=== PATIENT | female | born 1995 | race Hispanic/Latino ===

== ENCOUNTER 2017-01-18 17:30 | Inpatient (IN) | payer MEDICAID, OTHER, SELFPAY ==
[~2017-01-18 17:30] MED LIST: Bupivacaine 0.25% HCL 30 ML VIAL ONE; Lidocaine 2% MPF 10 ML AMP (For Epidural Use) ONE
[2017-01-18 18:01] VITALS: BMI 36.9
[2017-01-18] MEDS: Lactated Ringer's 1,000 ML IV SCH (18:10)
[2017-01-18] MEDS ORDERED: Ondansetron HCl/PF 4 MG/2 ML Vial IVP PRN ×2 (18:31→19:31)
[2017-01-18] MEDS ORDERED: Promethazine HCl 25 MG/ML VIAL IM PRN ×2 (18:31→19:31)
[2017-01-18] MEDS ORDERED: Meperidine HCl/PF 25 MG/ML VIAL IM/IV PRN (18:31)
[2017-01-18] MEDS ORDERED: Acetaminophen 500 MG TAB PO PRN (18:31)
[2017-01-18] MEDS ORDERED: Fentanyl 4 mcg/Marc 0.1% Cadd 100 ML ONE (18:38)
[2017-01-18 18:40] LABS: Hematocrit 35.6 % (36.0-47.0); Mean Platelet Volume 8.8 fL (7.4-10.4); Red Blood Cell (RBC) Count 4.39 mill/uL (4.00-5.20); White Blood Cell (WBC) Count 15.9 thou/uL (4.8-10.8)
[2017-01-18] MEDS ORDERED: Lactated Ringer's 500 ML IV PRN (19:31)
[2017-01-18] MEDS ORDERED: Naloxone HCl 0.4 mg/ml Vial IVP PRN ×2 (19:31)
[2017-01-18] MEDS ORDERED: ePHEDrine/0.9% NaCl/PF SYRINGE 50 mg/10 ml SLOW IVP PRN (19:31)
[2017-01-18] MEDS ORDERED: diphenhydrAMINE 50 MG/ML VIAL IVP PRN (19:31)
[2017-01-18] MEDS ORDERED: Acetaminophen 325 MG TAB PO PRN (19:31)
[2017-01-18] MEDS ORDERED: Eucerin (Mineral Oil/Petrolatum,White) 30 gm Jar TOP PRN (19:31)
[2017-01-18] MEDS ORDERED: Communication Order-Pharmacy FS SCH (19:45)
[2017-01-18] MEDS ORDERED: Fentanyl 4mcg/Marcaine 0.1% Cassette 100 ML EPIDURAL SCH (19:45)
[2017-01-18] MEDS ORDERED: LR / Pitocin 40 units/1000 ml 1,000 ML ONE (22:18)
[2017-01-18] MEDS ORDERED: Milk Of Magnesia 30 ML UDCUP PO PRN ×2 (22:39→22:41)
[2017-01-18] MEDS ORDERED: Bisacodyl 10 MG SUPP PR PRN ×2 (22:39→22:41)
[2017-01-18] MEDS ORDERED: Lanolin Ointment 7 GM TUBE TOP PRN (22:41)
[2017-01-18] MEDS ORDERED: Preparation H Ointment 28 GM TUBE PR PRN (22:41)
[2017-01-18] MEDS ORDERED: Zolpidem Tartrate 5 MG TAB PO PRN (22:41)
[2017-01-18] MEDS ORDERED: diphenhydrAMINE 25 MG CAP PO PRN (22:41)
[2017-01-18] MEDS ORDERED: Benzocaine/Menthol 20-0.5% 60 ML CAN TOP PRN (22:41)
[2017-01-18] MEDS ORDERED: HYDROcodone/Acetaminophen 5/325 mg Tablet PO PRN (22:41)
[2017-01-18] MEDS ORDERED: LR / Pitocin 40 units/1000 ml 1,000 ML IV SCH ×2 (22:45)
[2017-01-19] MEDS: Dextrose 5%-Lactated Ringers 1,000 ML IV SCH ×3 (03:42→20:27)
[2017-01-19] MEDS: Lactated Ringer's 1,000 ML IV SCH ×2 (03:43→13:53)
[2017-01-19] MEDS: Ibuprofen 800 MG TAB PO SCH ×3 (06:26→21:06)
[2017-01-19] MEDS ORDERED: Ferrous Sulfate 325 MG TAB PO SCH (08:00)
[2017-01-19] MEDS ORDERED: Docusate Calcium (SURFAK) 240 MG CAP PO SCH (09:00)
[2017-01-19] MEDS ORDERED: Adacel (T-DAP) 0.5 ML VIAL IM ONE (09:00)
[2017-01-19] MEDS: Prenatal Vitamin 1 TAB PO SCH (09:17)
[2017-01-19] MEDS: Docusate Calcium (SURFAK) 240 MG CAP PO SCH ×2 (09:17→21:06)
[2017-01-19] MEDS: Ferrous Sulfate 325 MG TAB PO SCH ×2 (09:18→18:27)
[2017-01-20] MEDS: Lactated Ringer's 1,000 ML IV SCH ×2 (06:33→09:05)
[2017-01-20] MEDS: Ibuprofen 800 MG TAB PO SCH (06:35)
[2017-01-20 09:05] VITALS: BP 114/54; TEMP 98.2
[2017-01-20] MEDS: Dextrose 5%-Lactated Ringers 1,000 ML IV SCH ×2 (09:05→09:06)
[2017-01-20] MEDS: Ferrous Sulfate 325 MG TAB PO SCH (09:06)
[2017-01-20] MEDS: Prenatal Vitamin 1 TAB PO SCH (09:19)
[2017-01-20] MEDS: Docusate Calcium (SURFAK) 240 MG CAP PO SCH (09:20)
--- NOTE | 2017-01-20 13:31 | DN ---
DATE OF ADMISSION: 01/18/2017 ADMISSION DIAGNOSES: 1. A 21-year-old G2, P1 at 38 weeks and 5 days with active labor. 2. GBS negative. 3. Teen . POSTOPERATIVE DIAGNOSES: 1. A 21-year-old G2, P1 at 38 weeks and 5 days with active labor. 2. GBS negative. 3. Teen . 4. Liveborn female weighing 7 pounds 4 ounces with Apgars of 8 and 9 at 1 and 5 minutes respectivel y. PROCEDURE: Spontaneous vaginal delivery. SURGEON: Dr. Kayli Cintron. CLINICAL HISTORY: This patient is a 21-year-old G2, P1 with a history of a previous term vaginal de livery who presented at 38 weeks and 5 days in active labor with regular contractions. She requeste d an epidural for maternal analgesia. Prior to her epidural an amniotomy was performed with clear f luid noted. Once the patient was comfortable with her epidural shortly thereafter, she was noted to be completely dilated and +1 station. DETAILS OF PROCEDURE The patient began to push with good maternal effort and was able to bring the f etal vertex to the station in MARY position. The anterior shoulder followed by the posterio r shoulder followed by the remainder of the 's body was delivered. The cord was doubly clampe d and cut and the cried spontaneously. After the cord was cut and the baby was placed on mat ernal abdomen with the nurse in attendance, was able to stimulate and attend to the baby. Explorati on of the vagina, introitus and cervix revealed no lacerations. Uterine massage and gentle traction allowed the placenta to deliver spontaneously intact with a 3-vessel cord. The uterus was firm at the end of the procedure. The patient was cleansed and dedraping and allowed to recover in Labor an d Delivery in satisfactory condition. All needle, sponge, lap, and instrument counts were correct x 2 at the end of the procedure. A cord blood was obtained and placenta was discarded for medical was te. There were no other issues surrounding this delivery. Again, the patient had a liveborn female weighing 7 pounds 4 ounces with Apgars of 8 and 9 at 1 and 5 minutes, respectively.
== END 2017-01-20 13:50 | disposition home or self-care (01) | DRG 775 ==
LOC: L&D/OP 17:30 → L&D 18:30 → 3SW 01-19 00:55
PROVIDERS: ADMIT Obstetrics & Gynecology; ATTEND Obstetrics & Gynecology
PROC: 10E0XZZ Delivery of Products of Conception, External Approach (ICD-10-PCS; principal; 2017-01-18)
PROC: 10907ZC Drainage of Amniotic Fluid, Therapeutic from Products of Conception, Via Natural or Artificial Opening (ICD-10-PCS; 2017-01-18)
DX: O80 Encounter for full-term uncomplicated delivery (principal); Z37.0 Single live birth; Z3A.38 38 weeks gestation of pregnancy
CPT/HCPCS: 36415; 85027; 86780; 87340; J2001; S0020

== ENCOUNTER 2018-08-15 17:30 | Day surgery (SDC) | payer MEDICAID ==
[2018-08-15 18:10] VITALS: BMI 379.3
--- NOTE | 2018-08-15 18:12 | PDOC.FPROB ---
FMR OB H&P: HPI - History of Present Illness Chief Complaint: contractions. History of Present Illness: 23 yo at 36.5 wk dated by late 1st trimester US. Presents with CC of intermittent contractions that started 2 days ago. Stated episodes would last 20 -30 min and she would have ctx every 5 min. 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 reports loosing mucous plug 2 days ago and has had increased discharge since requiring use of pad. Also reports nausea and vomiting x4 episodes today. States Dr. Cintron told her her cervix was a "pinky tip dilated" at her last visit. Primary Care Physician: Dr. George Cintron FMR OB H&P: Current - Care : 3 Para: 2 Gestational age: 36.5 Due date: 09/07/2018 Dating Criteria: late 1T/Early 2T US Course/Complications: obesity, short interval . - OB Labs Blood type: A RH: positive Antibody Screen: negative HIV: negative RPR: negative HepBsAg: negative Rubella: non-immune Quad screen: unknown (pt declined.) Urine drug screen: not done Gonorrhea: negative Chlamydia: negative Pap Smear: NILM 1 hour gtt: 132 GBS: negative H&H: 12.8/38.2 FMR OB H&P: History - Past Medical History PMH: obesity, depression - OB History OB History: 2 : 09/2016 (glucose intolerance), 01/2016 (oligo) - CYTOTECHNOLOGIST History CYTOTECHNOLOGIST History: none - Surgical History Sx History: none - Social History Social History: no E/T/D - Family History Family History: unremarkable. FMR OB H&P: Medications - Current Home Medications: Medication Instructions Recorded Confirmed Type Vitamin 1 tablet PO DAILY 10/05/15 08/15/18 History Iron Polysaccharide Complex 1 tab PO DAILY 08/15/18 08/15/18 History [Ferrex 150] Allergies/Adverse Reactions: Allergies Allergy/AdvReac Type Severity Reaction Status Date / Time No Known Allergies Allergy Verified 01/18/17 17:56 FMR OB H&P: Vital Signs - Maternal Vital signs: BP: 121/73, P 90, R18, T 98.8F, SpO2 99%/RA - Heart Tones Baseline: 140 Variability: moderate Acceleration: present Deceleration: absent Category: category 1 Abanda contractions every: 5-10 min FMR OB H&P: Physical Exam - Physical Exam General: NAD HEENT: normocephalic and atraumatic, conjunctiva clear Deviation from normal: dry lips, moist tongue Neck: supple, FROM Heart: RRR, normal S1/S2 General: CTAB, no respiratory distress, no wheezing Abdomen: soft, gravid, non-tender, no masses Musculoskeletal: normal gait and station, pulses present Neurological: no tremor, no focal deficit Skin: no rash, good tugor Lymphatic: no unusual bruising or bleeding, no purpura Psychiatric: intact recent and remote memory, good judgement and insight - Pelvic Exam SVE: FT/50/-2 Presentation: vertex. FMR OB H&P: A/P - Problem List (1) Uterine contractions during Current Visit: Yes Status: Acute Code(s): O62.2 - OTHER UTERINE INERTIA (2) Nausea & vomiting Current Visit: Yes Status: Acute Code(s): R11.2 - NAUSEA WITH VOMITING, UNSPECIFIED Qualifiers: Vomiting type: unspecified Vomiting Intractability: non-intractable Qualified Code(s): R11.2 - Nausea with vomiting, unspecified (3) Current Visit: Yes Status: Acute Qualifiers: Weeks of gestation: 36 weeks Qualified Code(s): Z3A.36 - 36 weeks gestation of Disposition: - Prelabor contractions: Unchanged per patient report. Will check UA and VP3. Bolus LR 1L and give phenagren 25 mg IVP. Will f/u results and reassess in 2 hours. - obesity - short interpregnancy interval Discussion: Date/Time: 08/15/181808 This H&P was discussed with Dr. Foster who agree with the above documentation and plan.
[2018-08-15] MEDS ORDERED: Promethazine HCl 25 MG/ML VIAL IM/IV SCH (18:15)
[2018-08-15 18:37] LABS: Amnisure Test No Membranes Rupture (No Rupture)
[2018-08-15 18:38] LABS: Amnisure Internal Control QC ACCEPTABLE (ACCEPTABLE)
[2018-08-15 19:44] LABS: Bilirubin Negative (Negative); Blood, Urine Negative (Negative); Clarity CLOUDY (Clear); Glucose, Urine (Dipstick) Negative (Negative); Leukocyte Negative (Negative); Nitrite Negative (Negative); Protein, Urine (Dipstick) Trace mg/dL (Neg-Trace); Specific Gravity, Urine 1.027 (1.002-1.036); pH, Urine 6.5 (5.0-9.0)
[2018-08-15 19:46] LABS: Bacteria/HPF Rare-Few HPF (None Seen); Hyaline Casts/LPF 7-10 HYALINE CAST LPF (0-3 Hyaline); Pathc Cast-AUWi Flag 2.17 (0-2.49); WBC/HPF 0-3 HPF (0-3)
[2018-08-15 19:47] LABS: Urine Culture Reflex No No
--- NOTE | 2018-08-15 20:03 | PDOC.EVN ---
Event Note - Event Note Event Note: Discussed case with Dr. Cintron. She would like to observe the patient for 1 more hour and monitor for further cervical dilation. Evaluation thus far is negative. Will reassess in [address] Foster notified.
[2018-08-15] MEDS ORDERED: Butorphanol Tartrate 1 MG/ML VIAL ONE ×2 (21:03)
[2018-08-15] MEDS ORDERED: Butorphanol Tartrate 1 MG/ML VIAL IM SCH (21:15)
--- NOTE | 2018-08-15 21:45 | PDOC.EVN ---
Event Note - Event Note Event Note: Patient unchanged on reevaluation. Given stadol 2 mg IVP which helped with pain. Will d/c home at this time. Given RTC precautions. Discussed with Dr. Foster. Dr. Cintron notified.
== END 2018-08-15 21:56 | disposition home or self-care (01) ==
LOC: L&D/OP 17:30
PROVIDERS: ATTEND Obstetrics & Gynecology
DX: O47.03 False labor before 37 completed weeks of gestation, third trimester (principal); O99.89 Other specified diseases and conditions complicating pregnancy, childbirth and the puerperium; R11.2 Nausea with vomiting, unspecified; O99.210 Obesity complicating pregnancy, unspecified trimester; E66.9 Obesity, unspecified; O99.343 Other mental disorders complicating pregnancy, third trimester; F32.9 Major depressive disorder, single episode, unspecified; Z3A.36 36 weeks gestation of pregnancy; Z79.899 Other long term (current) drug therapy
CPT/HCPCS: 81001; 84112; 87480; 87510; 87660; 96360; 96361; 96372; J0595; J2550

== ENCOUNTER 2018-08-22 13:04 | Inpatient (IN) | payer OTHER ==
[2018-08-22] MEDS ORDERED: Bupivacaine/Epinephrine 0.25% 30 ML VIAL ONE (15:00)
[2018-08-22 15:01] VITALS: BMI 39.6
[2018-08-22 18:52] LABS: Bilirubin Negative (Negative); Blood, Urine Negative (Negative); Clarity CLEAR (Clear); Glucose, Urine (Dipstick) Negative (Negative); Leukocyte Negative (Negative); Nitrite Negative (Negative); Protein, Urine (Dipstick) Negative (Neg-Trace); Specific Gravity, Urine 1.009 (1.002-1.036); Urobilinogen 0.2 mg/dL (0.2-1.0)
[2018-08-22 18:54] LABS: Bacteria/HPF None Seen HPF (None Seen); Hyaline Casts/LPF 0-3 HYALINE CAST LPF (0-3 Hyaline); Pathc Cast-AUWi Flag 0.68 (0-2.49); RBC/HPF 0-3 HPF (0-3); Squamous Epithelial 0-3 HPF (0-3); WBC/HPF 0-3 HPF (0-3)
[2018-08-22] MEDS ORDERED: Fioricet 325/50/40 mg Tablet PO PRN (20:06)
[2018-08-22 20:32] LABS: Hemoglobin 10.3 g/dL (12.0-16.0); Mean Corpuscular HGB CONC 32.7 g/dL (32.0-36.0); Mean Corpuscular Hemoglobin 25.5 pg (27.0-31.0); Mean Platelet Volume 9.2 fL (7.4-10.4); Platelet Count 247 thou/uL (130-400); RBC Distribution Width 14.9 % (11.5-14.5); Red Blood Cell (RBC) Count 4.02 mill/uL (4.20-5.40); White Blood Cell (WBC) Count 13.7 thou/uL (4.8-10.8)
[2018-08-22] MEDS: Lactated Ringer's 1,000 ML IV SCH ×2 (20:47→22:56)
[2018-08-22 20:53] LABS: ALT (SGPT) Less than 7 U/L (8-55); AST (SGOT) 9 U/L (5-34); Albumin 3.5 g/dL (3.5-5.0); Alkaline Phosphatase 109 U/L (40-150); Anion Gap 13 mmol/L (10-20); BUN (Urea Nitrogen) 6 mg/dL (7.0-18.7); Bilirubin, Total 0.5 mg/dL (0.2-1.2); Calc. Creatinine Clearance 256 mL/min (70-130); Calcium 8.8 mg/dL (7.8-10.44); Carbon Dioxide 21 mmol/L (22-29); Chloride 105 mmol/L (98-107); Estimated GFR-MDRD Greater than 90; Globulin 3.4 g/dL (2.4-3.5); Glucose 76 mg/dL (70-105); Potassium 3.7 mmol/L (3.5-5.1); Protein, Total 6.9 g/dL (6.0-8.3); Sodium 135 mmol/L (136-145); Uric Acid 4.2 mg/dL (2.6-6.0)
[2018-08-22] MEDS ORDERED: Ondansetron PF 4 MG/2 ML Vial IVP PRN (23:31)
[2018-08-22] MEDS ORDERED: Promethazine HCl 25 MG/ML VIAL IM PRN (23:31)
[2018-08-22] MEDS ORDERED: NS / Oxytocin 40 units/1000ml 1,000 ML IV PRN (23:31)
[2018-08-22] MEDS ORDERED: Ibuprofen 800 MG TAB PO PRN (23:31)
[2018-08-22] MEDS ORDERED: HYDROcodone/Acetaminophen 5/325 mg Tablet PO PRN (23:31)
[2018-08-22] MEDS ORDERED: Lidocaine 1% (PF) 30 ML VIAL SC PRN (23:31)
[2018-08-22] MEDS ORDERED: Lactated Ringer's 1,000 ML IV SCH (23:45)
[2018-08-22] MEDS ORDERED: NS w/ Oxytocin 10 units 500 ML IV SCH (23:45)
[2018-08-22 23:50] LABS: Hemoglobin 10.2 g/dL (12.0-16.0); Mean Corpuscular HGB CONC 32.1 g/dL (32.0-36.0); Mean Corpuscular Hemoglobin 25.2 pg (27.0-31.0); Mean Corpuscular Volume 78.6 fL (78.0-98.0); Mean Platelet Volume 10.3 fL (7.4-10.4); Platelet Count 248 thou/uL (130-400); Red Blood Cell (RBC) Count 4.05 mill/uL (4.20-5.40); White Blood Cell (WBC) Count 13.9 thou/uL (4.8-10.8)
[2018-08-23 00:30] LABS: HBSAg Index 0.34 S/CO (0-0.99); Hep B Surf Ag Non-Reactive S/CO (NonReactive)
[2018-08-23 00:35] LABS: Syphilis Antibody Nonreactive (Nonreactive); Syphilis Antibody Index 0.04 S/CO (<1.00 Non-Reactive)
[2018-08-23] MEDS ORDERED: Butorphanol Tartrate 1 MG/ML VIAL ONE (06:06)
[2018-08-23] MEDS ORDERED: Butorphanol Tartrate 1 MG/ML VIAL SLOW IVP PRN (06:49)
[2018-08-23] MEDS ORDERED: Fentanyl 4 mcg/Bup 0.1% Cadd 100 ML ONE (07:20)
[2018-08-23] MEDS ORDERED: ePHEDrine/0.9% NaCl/PF SYRINGE 50 mg/10 ml SLOW IVP PRN (08:47)
[2018-08-23] MEDS ORDERED: Lactated Ringer's 500 ML IV PRN (08:47)
[2018-08-23] MEDS ORDERED: Acetaminophen 325 MG TAB PO PRN (08:47)
[2018-08-23] MEDS ORDERED: Naloxone HCl 0.4 mg/ml Vial IVP PRN ×2 (08:47)
[2018-08-23] MEDS ORDERED: Fentanyl 4 mcg/Bupivacaine 0.1% Cassette 100 ML EPIDURAL SCH (09:00)
[2018-08-23] MEDS ORDERED: Communication Order-Pharmacy FS SCH (09:00)
[2018-08-23] MEDS ORDERED: Lanolin Ointment 7 GM TUBE TOP PRN (09:16)
[2018-08-23] MEDS ORDERED: Milk Of Magnesia 30 ML UDCUP PO PRN (09:16)
[2018-08-23] MEDS ORDERED: Benzocaine-Menthol 82.5 ML CAN TOP PRN (09:16)
[2018-08-23] MEDS ORDERED: Bisacodyl 10 MG SUPP PR PRN (09:16)
[2018-08-23] MEDS ORDERED: Adacel (T-DAP) 0.5 ML SYRINGE IM ONE (09:16)
[2018-08-23] MEDS ORDERED: Ondansetron PF 4 MG/2 ML Vial IVP PRN (09:16)
[2018-08-23] MEDS ORDERED: Preparation H Ointment 28 GM TUBE PR PRN (09:16)
[2018-08-23] MEDS ORDERED: NS / Oxytocin 40 units/1000ml 1,000 ML IV SCH (09:30)
[2018-08-23] MEDS ORDERED: HYDROcodone/Acetaminophen 5/325 mg Tablet PO PRN ×2 (13:00)
[2018-08-23] MEDS: Ibuprofen 800 MG TAB PO SCH ×2 (15:46→21:39)
[2018-08-23] MEDS: Lactated Ringer's 1,000 ML IV SCH (17:23)
[2018-08-23] MEDS: Ferrous Sulfate 325 MG TAB PO SCH (17:29)
[2018-08-23] MEDS: Docusate Calcium (SURFAK) 240 MG CAP PO SCH (21:39)
[2018-08-24] MEDS: Ibuprofen 800 MG TAB PO SCH ×3 (05:21→21:32)
[2018-08-24] MEDS: Ferrous Sulfate 325 MG TAB PO SCH ×2 (08:40→17:33)
[2018-08-24] MEDS: Docusate Calcium (SURFAK) 240 MG CAP PO SCH ×2 (08:40→21:32)
[2018-08-24] MEDS ORDERED: Prenatal Vitamin 1 TAB PO SCH (09:00)
[2018-08-24] MEDS: Lactated Ringer's 1,000 ML IV SCH (17:31)
[2018-08-25] MEDS: Ibuprofen 800 MG TAB PO SCH (06:05)
[2018-08-25 08:29] VITALS: BP 128/77; TEMP 97.7
--- NOTE | 2018-08-25 11:01 | DN ---
DATE OF PROCEDURE: 08/22/2018 PREOPERATIVE DIAGNOSES: 1. A 23-year-old, G3, P2, presented to triage for contractions in pain. 2. Elevated blood pressures during triage. 3. Induction of labor at term with Pitocin. 4. Group B Streptococcus negative. 5. Anemia of . POSTOPERATIVE DIAGNOSES: 1. A 23-year-old, G3, P2, presented to triage for contractions in pain. 2. Elevated blood pressures during triage. 3. Induction of labor at term with Pitocin. 4. Group B Streptococcus negative. 5. Anemia of . 6. Live born male with Apgars of 9 and 9 at 1 and 5 minutes respectively, weighing 7 pounds 10 ounces. PROCEDURE PERFORMED: Spontaneous vaginal delivery. ANESTHESIA: Epidural. ESTIMATED BLOOD LOSS: Quantitative blood loss was 39. CLINICAL HISTORY: This patient is a 23-year-old multiparous, who presented the evening of 08/22 for contractions. She was 37 weeks and 5 days and has an uneventful course other than presentation at 14 weeks and a short interval . The patient also has an elevated body mass index of 39. As she was being evaluated in the triage, it was noted that she had several elevated pressures in the mild range, and the decision was made to move forward with an induction given her mild range pressures and headaches that resolved with Fioricet. The patient was started on Pitocin and she progressed rapidly. She requested an epidural for maternal analgesia. Prior to the induction, she was 3 cm and approximately 60% effaced. Before the epidural, she was then 7 cm and after the epidural, she was complete and +2. DESCRIPTION OF PROCEDURE: With good maternal effort, the patient was able to push the vertex to the pelvic floor to the position and on the second contraction push, she delivered the head in the MARY position. The anterior shoulder, followed by the posterior shoulder, followed by the remainder of the 's body was delivered. The cord was doubly clamped and cut. The infant cried spontaneously. The infant was then placed on the maternal abdomen and a cord blood was obtained. The placenta was then spontaneously delivered intact with a three-vessel cord and discarded. Exploration of the vagina introitus and cervix revealed no lacerations. The patient was expressed and the uterus was noted to be firm and well below the umbilicus. The patient was then cleansed and placed in the recovery position with new padding and allowed to recover with her . Again, the was a live born male, weighing 7 pounds 10 ounces with Apgars of 9 and 9 at 1 and 5 minutes respectively. All needle, sponge, lap, and instrument counts were correct x2 at the end of the procedure. There were no other issues surrounding this delivery. Job ID: [id number]
== END 2018-08-25 08:45 | disposition home or self-care (01) | DRG 807 ==
LOC: L&D/OP 13:04 → L&D 22:50 → 3SW 08-23 12:03
PROVIDERS: ADMIT Obstetrics & Gynecology; ATTEND Obstetrics & Gynecology
PROC: 3E033VJ Introduction of Other Hormone into Peripheral Vein, Percutaneous Approach (ICD-10-PCS; principal; 2018-08-22)
PROC: 10E0XZZ Delivery of Products of Conception, External Approach (ICD-10-PCS; 2018-08-22)
DX: O99.02 Anemia complicating childbirth (principal); Z37.0 Single live birth; D64.9 Anemia, unspecified; Z3A.37 37 weeks gestation of pregnancy
CPT/HCPCS: 36415; 59025; 80053; 81001; 84550; 85027; 86780; 86850; 86900; 86901; 87340; 90715; 99285; J0595; J2590

== ENCOUNTER 2019-04-26 13:36 | Outpatient (CLI) | payer OTHER ==
--- NOTE | 2019-04-26 14:26 | CT ---
EXAM: CT brain without contrast HISTORY: Dizziness for 2 weeks COMPARISON: None TECHNIQUE: Multiple contiguous axial images were obtained and a CT of the brain without contrast. FINDINGS: The brain is normal in morphology and attenuation without focal lesions or confluent areas of infarction. There is no evidence of hydrocephalus, intracranial hemorrhage, or extra-axial fluid collection. The calvarium and overlying soft tissues are unremarkable. The visualized paranasal sinuses and masto id air cells are well aerated. IMPRESSION: No evidence of acute intracranial abnormality
== END 2019-04-26 13:37 | disposition home or self-care (01) ==
LOC: SCSCT 13:36
PROVIDERS: ATTEND Nurse Practitioner Adult Health
DX: H53.2 Diplopia (principal); G44.52 New daily persistent headache (NDPH); R42 Dizziness and giddiness; Z91.81 History of falling
CPT/HCPCS: 70450